=== PATIENT | male | born 2000 | race Caucasian/White ===

== ENCOUNTER 2024-10-13 01:37 | Emergency (ER) | payer OTHER ==
[2024-10-13] MEDS: Ketorolac 30 MG/ML SDV IM ONE (02:19)
== END 2024-10-13 02:40 | disposition home or self-care (01) ==
LOC: FB.ED 01:37
DX: M54.50 Low back pain, unspecified (principal); M79.601 Pain in right arm; F17.210 Nicotine dependence, cigarettes, uncomplicated; Z79.899 Other long term (current) drug therapy
CPT/HCPCS: 96372; 99283; J1885